=== PATIENT | female | born 2000 | race Caucasian/White ===

== ENCOUNTER 2020-10-31 15:49 | Emergency (ER) | payer OTHER ==
[2020-11-01 15:08] LABS: SARS-CoV-2 NAA Not Detected (Not Detected)
== END 2020-10-31 16:23 | disposition home or self-care (01) ==
LOC: JVIRT 15:49
DX: Z11.52 Encounter for screening for COVID-19 (principal)
CPT/HCPCS: C9803; Q3014-GT; U0003; U0005

== ENCOUNTER 2021-03-13 07:24 | Emergency (ER) | payer OTHER ==
[2021-03-13 07:50] VITALS: BP 112/83; PULSE 88; TEMP 99.4; BMI 25.8
== END 2021-03-13 08:04 | disposition home or self-care (01) ==
LOC: FER 07:24
DX: J06.9 Acute upper respiratory infection, unspecified (principal)
CPT/HCPCS: 99283-25; C9803; U0003; U0005